=== PATIENT | male | born 1965 | race Caucasian/White ===

== ENCOUNTER → 2024-04-19 06:38 | Outpatient (REF) | payer BC, SELFPAY | LOC: RAD 06:38 | PROVIDERS: ATTENDING PHYSICIAN Otolaryngology; FAMILY PHYSICIAN Family Medicine; REFERRING PHYSICIAN Otolaryngology Facial Plastic Surgery | DX: J32.0 Chronic maxillary sinusitis (principal); R51.9 Headache, unspecified | CPT/HCPCS: 70486 ==